=== PATIENT | female | born 1950 | race Caucasian/White ===

== ENCOUNTER 2018-08-05 09:28 | Day surgery (SDC) | payer MEDICARE ==
[2018-08-05] MEDS ORDERED: Lactated Ringer's 500 ML IV ONE (10:45)
[2018-08-05] MEDS ORDERED: Propofol 10 mg/ml Inj (20 ML) ONE (11:10)
[2018-08-05] MEDS ORDERED: Lidocaine Hydrochloride 5 ML INJ ONE (11:44)
[2018-08-05 11:55] VITALS: TEMP 98
[2018-08-05 12:15] VITALS: BP 124/76; PULSE 80; RESP 18; O2SAT 99
== END 2018-08-05 12:30 | disposition home or self-care (01) ==
LOC: C.ENDO 09:28
PROVIDERS: ATTEND Internal Medicine Gastroenterology
DX: K22.8 Other specified diseases of esophagus (principal); K21.0 Gastro-esophageal reflux disease with esophagitis; K44.9 Diaphragmatic hernia without obstruction or gangrene; K29.50 Unspecified chronic gastritis without bleeding; I10 Essential (primary) hypertension; E11.9 Type 2 diabetes mellitus without complications; E78.5 Hyperlipidemia, unspecified; Z90.710 Acquired absence of both cervix and uterus; Z98.890 Other specified postprocedural states; Z79.84 Long term (current) use of oral hypoglycemic drugs; Z79.899 Other long term (current) drug therapy
CPT/HCPCS: 43239; 82948; 88305; J2704; J7120